=== PATIENT | male | born 1960 | race Caucasian/White ===

== ENCOUNTER 2024-03-12 09:48 | Outpatient (CLI) | payer MEDICARE, BC, SELFPAY | END 2024-03-12 09:49 | disposition home or self-care (01) | LOC: INJ CL 09:54 | PROVIDERS: PCP Family Medicine; Visit Provider Family Medicine | DX: M54.16 Radiculopathy, lumbar region (principal); M51.26 Other intervertebral disc displacement, lumbar region | CPT/HCPCS: 64483; J1100; Q9966 ==